=== PATIENT | male | born 1950 | race Caucasian/White ===

== ENCOUNTER 2020-10-08 08:12 | Day surgery (SDC) | payer MEDICARE ==
[2020-10-08] VITALS (14 sets, daily range): BP systolic 101–153; BP diastolic 55–96
[~2020-10-08] VITALS: Ht 185.4 cm; Wt 168.8 kg
[~2020-10-08 08:12] MED LIST: ALLO100T PO; CHLO25TA2 PO; COLC0.6T67 PO
[2020-10-08] MEDS ORDERED: albumin 25% 100mL bottle x 1 IV PRN (08:45)
[2020-10-08] MEDS ORDERED: LEVO500T89 PO (09:22)
[2020-10-08] MEDS ORDERED: DILT180C90 PO (09:22)
[2020-10-08] MEDS ORDERED: ALLO300T8 PO (09:22)
[2020-10-08 09:33] LABS: BASOPHILS # (AUTO) 0.1 X10'3 (0-0.2); BASOPHILS % (AUTO) 1.3 % (0-1); EOSINOPHILS # (AUTO) 0.3 X10'3 (0-0.9); EOSINOPHILS % (AUTO) 3.7 % (0-6); HEMATOCRIT 36.1 % (42.0-52.0); HEMOGLOBIN 12.2 g/dl (14.0-17.9); LYMPHOCYTES # (AUTO) 0.9 X10'3 (1.1-4.8); LYMPHOCYTES % (AUTO) 11.9 % (21-51); MEAN CORPUSCULAR HEMOGLOBIN 34.7 PG (27.0-31.0); MEAN CORPUSCULAR HGB CONC 33.9 g/dL (33.0-36.5); MEAN CORPUSCULAR VOLUME 102.5 FL (78-98); MEAN PLATELET VOLUME 7.4 FL (7.4-10.4); MONOCYTES # (AUTO) 0.8 X10'3 (0-0.9); MONOCYTES % (AUTO) 10.4 % (2-12); NEUTROPHILS # (AUTO) 5.6 X10'3 (1.8-7.7); NEUTROPHILS % (AUTO) 72.7 % (42-75); PLATELET COUNT 232 X10'3 (140-440); RED BLOOD COUNT 3.52 X10'6 (4.70-6.10); RED CELL DISTRIBUTION WIDTH 14.7 % (11.5-14.5); WHITE BLOOD COUNT 7.7 X10'3 (4.5-11.0)
[2020-10-08] MEDS ORDERED: iohexol 300 MG/1 ML 50ml polymer ONE (11:13)
[2020-10-08] MEDS ORDERED: LIDOcaine 1%/PF 5ML 10 MG/ML VIAL ONE (11:13)
[2020-10-08] MEDS ORDERED: heparin 1,000 UNITS/NS 500ml 500 ML ONE (11:30)
[2020-10-08] MEDS ORDERED: midazolam 2 mg/2 ml injection ONE (11:31)
[2020-10-08] MEDS ORDERED: fentaNYL/PF 50MCG/1 ML 2ML syringe ONE ×2 (11:31→11:57)
[2020-10-08 12:38] LABS: ALBUMIN,BODY FLUID 0.8 G/DL
--- NOTE | 2020-10-08 12:45 | NUR ---
RECEIVED REPORT FROM VINOD ALCALA
[2020-10-08 12:49] LABS: TOTAL PROTEIN,BODY FLUID < 2.0 G/DL
[2020-10-08 13:07] LABS: BF RBC COUNT 22 /CU MM; BF WBC COUNT 47 /CU MM (0-1000); BFAPPEAR HAZY; BFCOLOR YELLOW; BFVOLUME 60 ML
[2020-10-08 13:49] LABS: BF MESOTHELIAL CELLS MODERATE; EOSINOPHILS,BODY FLUID 2 %; LYMPHOCYTES,BODY FLUID 55 %; MONOCYTES,BODY FLUID 25 %; NEUTROPHILS,BODY FLUID 18 %
[2020-10-08 14:36] LABS: HEMATOCRIT 36.5 % (42.0-52.0); HEMOGLOBIN 12.1 g/dl (14.0-17.9); MEAN CORPUSCULAR HEMOGLOBIN 34.3 PG (27.0-31.0); MEAN CORPUSCULAR HGB CONC 33.1 g/dL (33.0-36.5); MEAN CORPUSCULAR VOLUME 103.6 FL (78-98); MEAN PLATELET VOLUME 7.2 FL (7.4-10.4); PLATELET COUNT 209 X10'3 (140-440); RED BLOOD COUNT 3.52 X10'6 (4.70-6.10); RED CELL DISTRIBUTION WIDTH 14.7 % (11.5-14.5); WHITE BLOOD COUNT 6.8 X10'3 (4.5-11.0)
== END 2020-10-08 15:15 | disposition home or self-care (01) ==
LOC: SSTAY O 08:12
PROVIDERS: ATTEND Radiology Vascular & Interventional Radiology
DX: R16.0 Hepatomegaly, not elsewhere classified (principal); R18.8 Other ascites; K74.69 Other cirrhosis of liver; M10.9 Gout, unspecified; I10 Essential (primary) hypertension; I48.91 Unspecified atrial fibrillation; Z96.641 Presence of right artificial hip joint; Z79.899 Other long term (current) drug therapy; Z20.822 Contact with and (suspected) exposure to COVID-19
CPT/HCPCS: 36415; 37200; 49083; 75970; 82042; 84157; 85025; 85027; 85610; 87070; 87635; 89051; 93005; 99152; 99153; C1769; C1894; C2625; J1644; J2250; J3010; P9047; Q9967; 88108; 88305; 88307; 88313; 88341; 88342

== ENCOUNTER 2020-11-23 07:13 | Day surgery (SDC) | payer MEDICARE ==
[2020-11-23] VITALS (9 sets, daily range): BP systolic 105–149; BP diastolic 80–95
[~2020-11-23] VITALS: Ht 182.9 cm; Wt 105.5 kg
[~2020-11-23 07:13] MED LIST changes: -ALLO100T PO; +ALLO300T8 PO; -CHLO25TA2 PO; -COLC0.6T67 PO; +DILT180C90 PO; +LEVO500T89 PO
[2020-11-23] MEDS: albumin 25% 100mL bottle x 1 IV PRN ×3 (09:29→10:52)
== END 2020-11-23 11:35 | disposition home or self-care (01) ==
LOC: SSTAY O 07:13
PROVIDERS: ATTEND Radiology Diagnostic Radiology
DX: R18.8 Other ascites (principal); M10.9 Gout, unspecified; I10 Essential (primary) hypertension; I48.91 Unspecified atrial fibrillation; Z79.01 Long term (current) use of anticoagulants; Z96.641 Presence of right artificial hip joint; F17.290 Nicotine dependence, other tobacco product, uncomplicated; Z79.899 Other long term (current) drug therapy
CPT/HCPCS: 49083; P9047

== ENCOUNTER 2020-12-22 08:08 | Day surgery (SDC) | payer MEDICARE ==
[~2020-12-22] VITALS: Ht 185.4 cm; Wt 107.5 kg
[2020-12-22] VITALS (12 sets, daily range): BP systolic 114–143; BP diastolic 60–91
[2020-12-22] MEDS ORDERED: normal saline 1000ml 1,000 ML IV PRN (08:50)
[2020-12-22] MEDS: albumin 25% 100mL bottle x 1 IV PRN ×3 (09:32→10:55)
== END 2020-12-22 12:05 | disposition home or self-care (01) ==
LOC: SSTAY O 08:08
PROVIDERS: ATTEND Radiology Vascular & Interventional Radiology
DX: R18.8 Other ascites (principal); R14.0 Abdominal distension (gaseous); M10.9 Gout, unspecified; I10 Essential (primary) hypertension; I48.91 Unspecified atrial fibrillation; Z96.641 Presence of right artificial hip joint; Z79.899 Other long term (current) drug therapy
CPT/HCPCS: 49083; P9047

== ENCOUNTER 2020-12-31 07:21 | Day surgery (SDC) | payer MEDICARE ==
[~2020-12-31] VITALS: Ht 185.4 cm; Wt 97.6 kg
[2020-12-31] VITALS (9 sets, daily range): BP systolic 103–125; BP diastolic 56–80
[~2020-12-31 07:21] MED LIST changes: -LEVO500T89 PO
[2020-12-31] MEDS: albumin 25% 100mL bottle x 1 IV PRN ×2 (10:00→10:44)
== END 2020-12-31 12:30 | disposition home or self-care (01) ==
LOC: SSTAY O 07:21
PROVIDERS: ATTEND Radiology Diagnostic Radiology
DX: R18.8 Other ascites (principal); M10.9 Gout, unspecified; I10 Essential (primary) hypertension; I48.91 Unspecified atrial fibrillation; Z79.01 Long term (current) use of anticoagulants; Z79.899 Other long term (current) drug therapy
CPT/HCPCS: 49083; P9047

== ENCOUNTER 2021-01-14 07:22 | Day surgery (SDC) | payer MEDICARE ==
[~2021-01-14] VITALS: Ht 185.4 cm; Wt 94.0 kg
[2021-01-14] VITALS (8 sets, daily range): BP systolic 105–135; BP diastolic 65–78
[2021-01-14] MEDS ORDERED: normal saline 1000ml 1,000 ML IV PRN (07:55)
[2021-01-14] MEDS ORDERED: FURO-149 PO (07:56)
[2021-01-14] MEDS: albumin 25% 100mL bottle x 1 IV PRN ×2 (10:01→10:41)
== END 2021-01-14 11:40 | disposition home or self-care (01) ==
LOC: SSTAY O 07:22
PROVIDERS: ATTEND Radiology Vascular & Interventional Radiology
DX: R18.8 Other ascites (principal); R14.0 Abdominal distension (gaseous); M10.9 Gout, unspecified; I10 Essential (primary) hypertension; I48.91 Unspecified atrial fibrillation; Z96.641 Presence of right artificial hip joint; Z79.899 Other long term (current) drug therapy
CPT/HCPCS: 49083; P9047

== ENCOUNTER 2021-02-11 09:09 | Day surgery (SDC) | payer MEDICARE ==
[2021-02-11] VITALS (15 sets, daily range): BP systolic 100–135; BP diastolic 55–89
[~2021-02-11] VITALS: Ht 185.4 cm; Wt 97.4 kg
[~2021-02-11 09:09] MED LIST changes: +FURO-149 PO
[2021-02-11] MEDS: albumin 25% 100mL bottle x 1 IV PRN ×3 (10:10→11:04)
== END 2021-02-11 13:20 | disposition home or self-care (01) ==
LOC: SSTAY O 09:09
PROVIDERS: ATTEND Radiology Vascular & Interventional Radiology
DX: K70.31 Alcoholic cirrhosis of liver with ascites (principal); M10.9 Gout, unspecified; I10 Essential (primary) hypertension; I48.91 Unspecified atrial fibrillation; Z79.01 Long term (current) use of anticoagulants; Z96.641 Presence of right artificial hip joint; Z79.899 Other long term (current) drug therapy
CPT/HCPCS: 49083; P9047

== ENCOUNTER 2021-02-25 07:11 | Day surgery (SDC) | payer MEDICARE ==
[~2021-02-25] VITALS: Ht 185.4 cm; Wt 96.9 kg
[2021-02-25] VITALS (10 sets, daily range): BP systolic 107–123; BP diastolic 65–76
[2021-02-25] MEDS ORDERED: normal saline 1000ml 1,000 ML IV PRN (07:40)
[2021-02-25] MEDS: albumin 25% 100mL bottle x 1 IV PRN ×2 (09:21→09:41)
== END 2021-02-25 11:15 | disposition home or self-care (01) ==
LOC: SSTAY O 07:11
PROVIDERS: ATTEND Radiology Vascular & Interventional Radiology
DX: K70.31 Alcoholic cirrhosis of liver with ascites (principal); M10.9 Gout, unspecified; I10 Essential (primary) hypertension; I48.91 Unspecified atrial fibrillation; Z79.01 Long term (current) use of anticoagulants; Z79.899 Other long term (current) drug therapy; Z96.641 Presence of right artificial hip joint
CPT/HCPCS: 49083; P9047

== ENCOUNTER 2021-03-10 07:16 | Day surgery (SDC) | payer MEDICARE ==
[~2021-03-10] VITALS: Ht 188 cm; Wt 88.4 kg
[2021-03-10] VITALS (7 sets, daily range): BP systolic 105–131; BP diastolic 67–81
[2021-03-10] MEDS ORDERED: albumin 25% 100mL bottle x 1 IV PRN (07:50)
[2021-03-10] MEDS ORDERED: SPIR25TA PO (07:57)
[2021-03-10] MEDS ORDERED: FERR325T28 PO (07:57)
== END 2021-03-10 10:20 | disposition home or self-care (01) ==
LOC: SSTAY O 07:16
PROVIDERS: ATTEND Radiology Diagnostic Radiology
DX: R18.8 Other ascites (principal); R14.0 Abdominal distension (gaseous); M10.9 Gout, unspecified; I10 Essential (primary) hypertension; I48.91 Unspecified atrial fibrillation; Z79.01 Long term (current) use of anticoagulants; Z96.641 Presence of right artificial hip joint; Z79.899 Other long term (current) drug therapy
CPT/HCPCS: 49083; P9047

== ENCOUNTER 2022-04-26 10:01 | Day surgery (SDC) | payer OTHER ==
[2022-04-21 10:54] LABS: BASOPHILS # (AUTO) 0.1 X10'3 (0-0.2); BASOPHILS % (AUTO) 0.7 % (0-1); EOSINOPHILS # (AUTO) 0.1 X10'3 (0-0.9); EOSINOPHILS % (AUTO) 1.3 % (0-6); LYMPHOCYTES # (AUTO) 0.8 X10'3 (1.1-4.8); MEAN CORPUSCULAR HEMOGLOBIN 33.2 PG (27.0-31.0); MEAN CORPUSCULAR HGB CONC 33.5 g/dL (33.0-36.5); MEAN PLATELET VOLUME 7.9 FL (7.4-10.4); MONOCYTES # (AUTO) 0.6 X10'3 (0-0.9); NEUTROPHILS # (AUTO) 6.8 X10'3 (1.8-7.7); PRE OP HEMATOCRIT 43.3 % (42.0-52.0); PRE OP HEMOGLOBIN 14.5 g/dL (14.0-17.9); PRE OP PLATELET COUNT 267 X10'3 (140-440); RED BLOOD COUNT 4.37 X10'6 (4.70-6.10); RED CELL DISTRIBUTION WIDTH 14.4 % (11.5-14.5)
[2022-04-21 11:08] LABS: ALBUMIN/GLOBULIN RATIO 1.1 (1.1-1.5); ALKALINE PHOSPHATASE 127 IU/L (46-116); BLOOD UREA NITROGEN 27 MG/DL (7-18); BUN/CREATININE RATIO 22.3 (5.4-32.0); CALCIUM 9.4 MG/DL (8.5-10.1); CHLORIDE 105 MMOL/L (99-107); CREATININE 1.21 MG/DL (0.60-1.10); PRE OP ALT 27 U/L (30-65); PRE OP ANION GAP 12 (8-16); PRE OP AST 25 U/L (10-37); PRE OP BILIRUB, TOTAL 0.4 MG/DL (0.0-1.0); PRE OP GLUCOSE 115 MG/DL (70-104); PRE OP POTASSIUM 4.6 MMOL/L (3.4-5.1); PRE OP SODIUM 142 MMOL/L (135-145); TOTAL CARBON DIOXIDE 24.9 MMOL/L (24-32); TOTAL PROTEIN 7.7 G/DL (6.4-8.2); eGFR 59 ML/MIN
[2022-04-26] VITALS (16 sets, daily range): BP systolic 134–175; BP diastolic 75–100
[~2022-04-26] VITALS: Ht 185.4 cm; Wt 98.3 kg
[~2022-04-26 10:01] MED LIST changes: -FURO-149 PO; +LISI20TA28 PO; +MULT-1085 PO; +famotidine 20mg tablet PO ONE; +meperidine/PF 25mg/ml syringe IV PRN; +morphine 2 MG/ML inj. syringe IV PRN; +morphine 4 MG/ML inj SYRINge IV PRN; +ondansetron/PF 4mg/2ml inj IV PRN; +proCHLORperazine 10 MG/2 ml inj IV PRN; +ringers solution, lacted 1,000 ML IV SCH
[2022-04-26] MEDS ORDERED: ceFAZolin inj. 2,000 MG in dextrose 5%-water 100 ML IV ONE (12:19)
[2022-04-26] MEDS ORDERED: BUPIVAcaine/PF 2.5mg/ml (0.25%) 10ml vial ONE (12:31)
[2022-04-26] MEDS ORDERED: LIDOcaine 1% 30ml preserv. free vial ONE (12:31)
[2022-04-26] MEDS ORDERED: midazolam 1 mg/ML 2ml injection ONE (12:48)
[2022-04-26] MEDS ORDERED: propofol inj 20 ML IV ONE (12:49)
[2022-04-26] MEDS ORDERED: fentaNYL /PF 50mcg/ml 5ml ampule ONE (12:49)
[2022-04-26] MEDS ORDERED: acetaminophen 1,000mg/100ml IV 100 ML IV ONE (13:21)
[2022-04-26] MEDS ORDERED: rocuronium 10mg/ml inj IV ONE (14:47)
[2022-04-26] MEDS ORDERED: ondansetron/PF 4mg/2ml inj ONE (14:47)
[2022-04-26] MEDS ORDERED: oxyCODONE/APAP 5-325mg tablet PO PRN (14:50)
--- NOTE | 2022-04-26 14:55 | NUR ---
Received from OR via [facility], accompanied by Anesthesiologist MACARENA and report given by Anesthesiolgist. PT IS GROGGY BUT RESPONDS TO VERBAL STIMULI, ANSWERES QUESTIONS APPROPRIATELY AND IS ABLE TO LUEVANO. PT PLACED ON BEDSIDE MONITOR, VSS, PT IS IN SR WITH RATE IN 60'S. PT RECEIVING 10L O2 TO MASK AND TOLERATING WELL, O2 SAT > 95%, WILL TITRATE DOWN TOLERATED. PT HAS 4 BAND AIDS TO MID ABD HORIZONTALLY, ALL ARE CDI. PT HAS 20G PIV TO RT WRIST WITH LR INFUSING ORDERED. PT DENIES PAIN AT THIS TIME. WILL CONTINUE TO ASSESS
--- NOTE | 2022-04-26 17:40 | NUR ---
ALL DISCHARGE CRITERIA HAS BEEN MET. VSS, PAIN AT A TOLERABLE LEVEL, VOIDING AND ABLE TO SAFELY AMBULATE AND TRANSFER SELF. IV TAKEN OUT WITHOUT ANY COMPLICATIONS. ALL DISCHARGE INSTRUCTIONS COVERED WITH PATIENT AND ALL QUESTIONS ANSWERED. PATIENT TAKEN OUT VIA WHEELCHAIR TO PERSONAL VEHICLE WHERE DAUGHTER DROVE PATIENT HOME.
== END 2022-04-26 17:32 | disposition home or self-care (01) ==
LOC: SSTAY O 10:01 → PAS 17:32
PROVIDERS: ATTEND Surgery
DX: K40.20 Bilateral inguinal hernia, without obstruction or gangrene, not specified as recurrent (principal); K43.6 Other and unspecified ventral hernia with obstruction, without gangrene; I10 Essential (primary) hypertension; Z79.899 Other long term (current) drug therapy; Z98.890 Other specified postprocedural states; Z96.641 Presence of right artificial hip joint; M10.9 Gout, unspecified; Z72.89 Other problems related to lifestyle
CPT/HCPCS: 36415; 49561; 49650; 80053; 82948; 85025; 87811; 93005; J0131; J2250; J2405; J2704; J3010; J3490; J7120; Z7512; A4215; A4618; A7000; C1781